=== PATIENT | female | born 1985 | race Caucasian/White ===

== ENCOUNTER 2025-02-07 09:30 | Outpatient (CLI) | payer BC, SELFPAY ==
--- NOTE | 2025-02-07 09:45 | CRLHL7_ITS ---
For Patients: As a result of the Cures Act, medical imaging exams and procedure reports are released immediately into your electronic medical record. You may view this report before your referring provider. If you have questions, please contact your health care provider. DIGITAL DIAGNOSTIC BILATERAL MAMMOGRAM USING TOMOSYNTHESIS AND COMPUTER-AIDED DETECTION RIGHT BREAST ULTRASOUND CLINICAL HISTORY: RIGHT breast pain. COMPARISON: None. TECHNIQUE: Digital BILATERAL mammogram in four projections with computer-aided detection. Tomosynthesis was used in this interpretation. Real-time ultrasound imaging of RIGHT breast with imaging documentation. BREAST COMPOSITION: The breasts are extremely dense, which lowers the sensitivity of mammography. FINDINGS: 3D CC/MLO BILATERAL mammogram images submitted. Nodular densities within the RIGHT breast noted without architectural distortion. No suspicious calcifications or adenopathy. Targeted RIGHT breast ultrasound performed. At 10 o`clock 4 cm from the nipple, there is a simple anechoic circumscribed cyst which measures 2.2 x 1.3 x 2.5 cm. At 9 o`clock 4 cm from the nipple there is a circumscribed anechoic simple cyst measuring 2.2 x 0.8 x 1.6 cm. IMPRESSION: Benign fibrocystic changes RIGHT breast. No suspicious findings. No evidence of malignancy. RECOMMENDATIONS: Routine screening mammography. A lay language report of this examination will be provided to the patient. BI-RADS Category 2: Benign Dictated by Derian Jones MD @ 02/07/2025 10:30:22 AM jj/Dictated by: Derian Jones MD @ 02/07/2025 10:30:00 AM (Electronically Signed)
--- NOTE | 2025-02-07 10:15 | CRLHL7_ITS ---
For Patients: As a result of the Cures Act, medical imaging exams and procedure reports are released immediately into your electronic medical record. You may view this report before your referring provider. If you have questions, please contact your health care provider. SEE DIGITAL DIAGNOSTIC BILATERAL MAMMOGRAM PERFORMED SAME DAY CRL:[email or web address] [email or web address]/Dictated by: Derian Jones MD @ 02/07/2025 10:30:00 AM (Electronically Signed)
== END 2025-02-07 09:31 | disposition home or self-care (01) ==
LOC: MAMMO 09:31
PROVIDERS: PCP Registered Nurse; Visit Provider Registered Nurse
DX: N64.4 Mastodynia (principal); N60.01 Solitary cyst of right breast
CPT/HCPCS: 76642; 77066; G0279